=== PATIENT | female | born 2000 ===

== ENCOUNTER 2025-08-19 12:30 | Outpatient (RCR) | payer MEDICAID, SELFPAY | END 2025-08-19 23:59 | disposition home or self-care (01) | LOC: RPT 12:30 | PROVIDERS: ATTENDING PHYSICIAN Nurse Practitioner | DX: M62.838 Other muscle spasm (principal); M25.552 Pain in left hip; Z73.6 Limitation of activities due to disability; M62.81 Muscle weakness (generalized); R32 Unspecified urinary incontinence; K59.00 Constipation, unspecified | CPT/HCPCS: 97163; 97530 ==

== ENCOUNTER 2025-09-04 06:56 | Outpatient (RCR) | payer MEDICAID, SELFPAY | END 2025-09-04 23:59 | disposition home or self-care (01) | LOC: RPT 06:56 | PROVIDERS: ATTENDING PHYSICIAN Nurse Practitioner | DX: M62.838 Other muscle spasm (principal); M25.552 Pain in left hip; Z73.6 Limitation of activities due to disability; M62.81 Muscle weakness (generalized); R32 Unspecified urinary incontinence; K59.00 Constipation, unspecified | CPT/HCPCS: 97112; 97140; 97530 ==

== ENCOUNTER 2025-09-28 15:08 | Outpatient (RCR) | payer OTHER, SELFPAY | END 2025-10-19 23:59 | disposition home or self-care (01) | LOC: RPT 15:08 | PROVIDERS: ATTENDING PHYSICIAN Nurse Practitioner | DX: M62.838 Other muscle spasm (principal); M25.552 Pain in left hip; Z73.6 Limitation of activities due to disability; M62.81 Muscle weakness (generalized); K59.00 Constipation, unspecified; R32 Unspecified urinary incontinence | CPT/HCPCS: 97110; 97112; 97530 ==